=== PATIENT | male | born 1985 | race Caucasian/White ===

== ENCOUNTER 2017-05-16 22:27 | Emergency (ER) | payer OTHER ==
[~2017-05-16] VITALS: Ht 175.3 cm; Wt 100.0 kg
[2017-05-16] MEDS ORDERED: LAMO25 PO (22:40)
[2017-05-17 00:12] VITALS: BP 130/81
== END 2017-05-17 00:20 | disposition home or self-care (01) ==
LOC: EMS 22:33
DX: J40 Bronchitis, not specified as acute or chronic (principal)
CPT/HCPCS: 71046; 99284

== ENCOUNTER 2024-07-25 11:46 | Emergency (ER) | payer OTHER ==
[~2024-07-25] VITALS: Ht 172.7 cm; Wt 85.0 kg
[~2024-07-25 11:46] MED LIST: LAMO25TA36 PO
[2024-07-25 12:42] VITALS: TEMP 97.6
[2024-07-25 13:18] LABS: BASOPHILS % (AUTO) 0.5 % (0.0-2.0); EOSINOPHILS % (AUTO) 1.6 % (1.0-6.0); HEMATOCRIT 44.9 % (41-53); HEMOGLOBIN 15.4 g/dL (13.5-17.5); LYMPHOCYTES # (AUTO) 2.9 K/uL (1.0-4.8); LYMPHOCYTES % (AUTO) 43.8 % (22.0-44.0); MEAN CORPUSCULAR HEMOGLOBIN 29.2 pg (26.0-34.0); MEAN CORPUSCULAR HGB CONC 34.4 G/dL (31.0-37.0); MEAN CORPUSCULAR VOLUME 85 fL (80-100); MONOCYTES # (AUTO) 0.5 K/uL (0.1-1.0); MONOCYTES % (AUTO) 7.1 % (2.0-9.0); NEUTROPHILS # (AUTO) 3.1 K/uL (1.8-7.7); PLATELET COUNT (AUTO) 198 K/uL (150-450); RED BLOOD CELL COUNT(AUTO) 5.29 MIL/uL (4.50-5.90); WHITE BLOOD COUNT (AUTO) 6.6 K/uL (4.5-11.0)
[2024-07-25 13:26] LABS: GLUCOMETER DEV NAME(LOC) ER.7; GLUCOSE,POINT OF CARE 70 MG/DL (70-110)
[2024-07-25 13:26] LABS: ANION GAP 7 mmol/L (8-16); CALCIUM, TOTAL 9.1 mg/dL (8.8-10.5); CARBON DIOXIDE 29 mmol/L (22-29); CHLORIDE 99 mmol/L (98-107); CREATININE 0.91 mg/dL (0.60-1.30); GLOMERULAR FILTR. RATE CALC > 60 mL/min (>60); GLUCOSE,RANDOM 87 mg/dL (70-110); POTASSIUM 4.1 mmol/L (3.5-5.1); SODIUM SERUM 135 mmol/L (136-145); UREA NITROGEN, BLOOD 16 mg/dL (7-18)
[2024-07-25 13:31] LABS: ALBUMIN 4.1 g/dL (3.4-5.0); BILIRUBIN,DIRECT 0.2 mg/dL (0.00-0.20); BILIRUBIN,TOTAL 0.7 mg/dL (0.1-1.0); TOTAL PROTEIN, SERUM 7.6 g/dL (6.4-8.2)
[2024-07-25 13:36] LABS: TROPONIN I-HIGH SENSITIVITY 17 ng/L (<76)
[2024-07-25 14:37] VITALS: BP 126/80; PULSE 59; RESP 16; O2SAT 100
[2024-07-25] MEDS ORDERED: HYDR50CA7 PO (15:01)
== END 2024-07-25 15:12 | disposition home or self-care (01) ==
LOC: EMS 11:46
DX: R07.89 Other chest pain (principal); F41.1 Generalized anxiety disorder
CPT/HCPCS: 71045; 80048; 80076; 82962; 84484; 85025; 93005; 99285; 36415-L1; 36415-TC

== ENCOUNTER 2024-12-07 12:42 | Emergency (ER) | payer OTHER ==
[~2024-12-07] VITALS: Ht 170.2 cm; Wt 99.0 kg
[~2024-12-07 12:42] MED LIST changes: +HYDR50CA7 PO
[2024-12-07 13:04] VITALS: TEMP 98.2
[2024-12-07] MEDS: ACETAMINOPHEN 500 MG TABLET PO ONE (13:41)
[2024-12-07] MEDS ORDERED: ACET-3385 PO (13:45)
[2024-12-07] MEDS ORDERED: BACITRACIN 28 GM OINTMENT TP ONE (13:45)
[2024-12-07] MEDS ORDERED: IBUP-1492 PO (13:45)
[2024-12-07] MEDS ORDERED: BACITRACIN 0.9 GM PACKET OINTMENT TP ONE (13:45)
[2024-12-07 14:52] VITALS: BP 123/67; PULSE 62; RESP 18; O2SAT 99
== END 2024-12-07 14:53 | disposition home or self-care (01) ==
LOC: EMS 12:46
DX: S93.602A Unspecified sprain of left foot, initial encounter (principal); Z79.899 Other long term (current) drug therapy; X50.1XXA Overexertion from prolonged static or awkward postures, initial encounter; Y93.89 Activity, other specified; Y92.89 Other specified places as the place of occurrence of the external cause; Y99.8 Other external cause status
CPT/HCPCS: 99284